=== PATIENT | male | born 1960 | race Asian ===

== ENCOUNTER 2016-06-27 18:13 | Emergency (ER) | payer OTHER ==
[~2016-06-27] VITALS: Ht 170.2 cm; Wt 131.0 kg
[2016-06-27] MEDS ORDERED: TICA90TA PO (18:27)
[2016-06-27] MEDS ORDERED: METF500T4 PO (18:27)
[2016-06-27] MEDS ORDERED: ALLO100T PO (18:27)
[2016-06-27] MEDS ORDERED: ASPI-1061 PO (18:27)
[2016-06-27] MEDS ORDERED: ATOR10TA84 PO (18:27)
[2016-06-27] MEDS ORDERED: LISI-660 PO (18:27)
[2016-06-27 19:30] LABS: BASOPHILS % (AUTO) 0.3 % (0.0-2.0); EOSINOPHILS % (AUTO) 1.8 % (1.0-6.0); HEMATOCRIT 42.8 % (41-53); HEMOGLOBIN 14.1 g/dL (13.5-17.5); LYMPHOCYTES # (AUTO) 3.1 K/uL (1.0-4.8); LYMPHOCYTES % (AUTO) 23.3 % (22.0-44.0); MEAN CORPUSCULAR HEMOGLOBIN 30.6 pg (26.0-34.0); MEAN CORPUSCULAR VOLUME 93 fL (80-100); MONOCYTES # (AUTO) 1.5 K/uL (0.1-1.0); MONOCYTES % (AUTO) 10.8 % (2.0-9.0); NEUTROPHILS # (AUTO) 8.6 K/uL (1.8-7.7); NEUTROPHILS % (AUTO) 63.8 % (40.0-70.0); PLATELET COUNT (AUTO) 305 K/uL (150-450); RED BLOOD CELL COUNT(AUTO) 4.62 MIL/uL (4.50-5.90); RED CELL DISTRIBUTION WIDTH 12.8 % (11.5-14.5); WHITE BLOOD COUNT (AUTO) 13.5 K/uL (4.5-11.0)
[2016-06-27 19:39] LABS: PROTHROMBIN TIME 10.5 SEC (9.4-11.6)
[2016-06-27] MEDS ORDERED: GELATIN SPONGE,ABSORBABLE 12-7 MM TP ONE (20:00)
[2016-06-27 20:41] VITALS: BP 140/85
[2016-06-27 20:50] LABS: GLUCOSE,POINT OF CARE 123 MG/DL (70-110)
== END 2016-06-27 20:44 | disposition home or self-care (01) ==
LOC: EMS 18:18
DX: S80.212A Abrasion, left knee, initial encounter (principal); S80.211A Abrasion, right knee, initial encounter; S81.801A Unspecified open wound, right lower leg, initial encounter; D68.9 Coagulation defect, unspecified; E11.9 Type 2 diabetes mellitus without complications; I10 Essential (primary) hypertension; E78.00 Pure hypercholesterolemia, unspecified; Z79.82 Long term (current) use of aspirin; W18.09XA Striking against other object with subsequent fall, initial encounter; Y93.89 Activity, other specified; Y92.89 Other specified places as the place of occurrence of the external cause; Y99.8 Other external cause status
CPT/HCPCS: 82962; 99284

== ENCOUNTER 2022-06-23 12:20 | Emergency (ER) | payer OTHER ==
[~2022-06-23] VITALS: Ht 170.2 cm; Wt 86.4 kg
[~2022-06-23 12:20] MED LIST: ALLO-97 PO; AMLO-257 PO; ASPI81TA87 PO; ATOR40TA28 PO; CHOL200016 PO; GABA-1181 PO; GLIM2 PO; LOSA-381 PO; LOSA-382 PO; METF-444 PO; METO50 PO; NITR0.4T52 SL; TICA90TA PO
[2022-06-23 12:41] LABS: GLUCOMETER DEV NAME(LOC) ERT.5; GLUCOSE,POINT OF CARE 165 MG/DL (70-110)
[2022-06-23] MEDS ORDERED: KETOROLAC TROMETHAMINE 30 MG/ML VIAL IM ONE (16:15)
[2022-06-23 16:27] VITALS: BP 151/80
== END 2022-06-23 16:28 | disposition home or self-care (01) ==
LOC: EMS 12:25
DX: S20.20XA Contusion of thorax, unspecified, initial encounter (principal); S80.02XA Contusion of left knee, initial encounter; S80.01XA Contusion of right knee, initial encounter; E11.9 Type 2 diabetes mellitus without complications; E78.00 Pure hypercholesterolemia, unspecified; I10 Essential (primary) hypertension; Z98.890 Other specified postprocedural states; W19.XXXA Unspecified fall, initial encounter; Y93.01 Activity, walking, marching and hiking; Y92.89 Other specified places as the place of occurrence of the external cause; Y99.8 Other external cause status
CPT/HCPCS: 99284; 82962; 71101; 73562 ×2; 96372; J1885

== ENCOUNTER 2022-06-26 11:20 | Emergency (ER) | payer OTHER ==
[~2022-06-26] VITALS: Ht 175.3 cm; Wt 100.9 kg
[2022-06-26 11:53] LABS: GLUCOMETER DEV NAME(LOC) ERT.5; GLUCOSE,POINT OF CARE 243 MG/DL (70-110)
[2022-06-26 12:12] LABS: BASOPHILS % (AUTO) 0.3 % (0.0-2.0); EOSINOPHILS % (AUTO) 1.9 % (1.0-6.0); HEMATOCRIT 44.1 % (41-53); HEMOGLOBIN 14.6 g/dL (13.5-17.5); LYMPHOCYTES # (AUTO) 2.5 K/uL (1.0-4.8); LYMPHOCYTES % (AUTO) 29.4 % (22.0-44.0); MEAN CORPUSCULAR HEMOGLOBIN 30.8 pg (26.0-34.0); MEAN CORPUSCULAR HGB CONC 33.2 G/dL (31.0-37.0); MEAN CORPUSCULAR VOLUME 93 fL (80-100); MONOCYTES # (AUTO) 0.7 K/uL (0.1-1.0); MONOCYTES % (AUTO) 7.9 % (2.0-9.0); NEUTROPHILS # (AUTO) 5.2 K/uL (1.8-7.7); NEUTROPHILS % (AUTO) 60.5 % (40.0-70.0); PLATELET COUNT (AUTO) 287 K/uL (150-450); RED BLOOD CELL COUNT(AUTO) 4.74 MIL/uL (4.50-5.90)
[2022-06-26 12:24] LABS: B-TYPE NATRIURETIC PEPTIDE 45 pg/mL (0-100)
[2022-06-26 12:28] LABS: ANION GAP 6 mmol/L (8-16); CALCIUM, TOTAL 8.8 mg/dL (8.8-10.5); CARBON DIOXIDE 29 mmol/L (22-29); CHLORIDE 104 mmol/L (98-107); CREATININE 0.69 mg/dL (0.60-1.30); GLUCOSE,RANDOM 227 mg/dL (70-110); POTASSIUM 4.1 mmol/L (3.5-5.1); SODIUM SERUM 139 mmol/L (136-145); UREA NITROGEN, BLOOD 9 mg/dL (7-18)
[2022-06-26 12:30] LABS: GLOMERULAR FILTR. RATE CALC > 60 mL/min (>60)
[2022-06-26 12:52] LABS: ALANINE AMINOTRANSFERASE 16 U/L (12-78); ALBUMIN 3.7 g/dL (3.4-5.0); ALKALINE PHOSPHATASE 132 U/L (46-116); ASPARTATE AMINOTRANSFERASE 10 U/L (15-37); BILIRUBIN,TOTAL 0.2 mg/dL (0.1-1.0); CREATINE KINASE, TOTAL ONLY 101 U/L (39-308); TOTAL PROTEIN, SERUM 7.4 g/dL (6.4-8.2)
[2022-06-26 13:12] LABS: APPEARANCE,URINE CLEAR (CLEAR); BILIRUBIN,URINE NEGATIVE (NEGATIVE); GLUCOSE, URINE (UA) >=1000 mg/dL (NEGATIVE); KETONES,URINE TRACE mg/dL (NEGATIVE); LEUKOCYTE ESTERASE ,URINE NEGATIVE (NEGATIVE); NITRATE,URINE NEGATIVE (NEGATIVE); OCCULT BLOOD,URINE NEGATIVE (NEGATIVE); PH,URINE 5.5 (5.0-8.0); PROTEIN,URINE TRACE mg/dL (NEGATIVE); SPECIFIC GRAVITIY, URINE 1.029 (1.003-1.030)
[2022-06-26 13:28] LABS: BACTERIA,URINE None Seen /HPF (None Seen); RBC,URINE None Seen /HPF (0-2); SQUAMOUS EPITHELIAL CELL,UR Few /LPF (None Seen); WBC,URINE 0-2 /HPF (0-5)
[2022-06-26 13:31] VITALS: BP 158/84
== END 2022-06-26 13:49 | disposition home or self-care (01) ==
LOC: EMS 11:26
DX: S20.212A Contusion of left front wall of thorax, initial encounter (principal); E11.65 Type 2 diabetes mellitus with hyperglycemia; I10 Essential (primary) hypertension; E78.00 Pure hypercholesterolemia, unspecified; Z79.82 Long term (current) use of aspirin; Z79.899 Other long term (current) drug therapy; W01.198A Fall on same level from slipping, tripping and stumbling with subsequent striking against other object, initial encounter; Y93.89 Activity, other specified; Y92.89 Other specified places as the place of occurrence of the external cause; Y99.8 Other external cause status
CPT/HCPCS: 71045; 80053; 81001; 82550; 82962; 83880; 84484; 85025; 93005; 99285; 36415-L1; 36415-TC

== ENCOUNTER 2023-06-18 11:30 | Emergency (ER) | payer OTHER ==
[~2023-06-18] VITALS: Ht 177.8 cm; Wt 90.9 kg
[2023-06-18] MEDS ORDERED: UNKNOWN MEDICATIONS MISC (12:06)
[2023-06-18 12:10] VITALS: TEMP 98.2
[2023-06-18] MEDS ORDERED: CHOL25TA4 PO (13:49)
[2023-06-18] MEDS ORDERED: HYDROCODONE/ACETAMINOPHEN 5-325 MG TABLET PO ONE (14:00)
[2023-06-18 15:20] VITALS: BP 134/74; PULSE 71; RESP 17
[2023-06-18] MEDS ORDERED: IBUP-1492 PO (15:32)
== END 2023-06-18 15:52 | disposition home or self-care (01) ==
LOC: EMS 11:30
DX: M79.641 Pain in right hand (principal); E11.9 Type 2 diabetes mellitus without complications; E78.00 Pure hypercholesterolemia, unspecified; I10 Essential (primary) hypertension; Z98.890 Other specified postprocedural states
CPT/HCPCS: 82962; 99283

== ENCOUNTER 2024-04-11 02:30 | Emergency (ER) | payer OTHER ==
[~2024-04-11] VITALS: Ht 170.2 cm; Wt 100.0 kg
[~2024-04-11 02:30] MED LIST changes: -ALLO-97 PO; -CHOL200016 PO; +CHOL25TA4 PO; -GLIM2 PO; +IBUP-1492 PO; -LOSA-381 PO; -LOSA-382 PO; -METO50 PO; -NITR0.4T52 SL; -TICA90TA PO; +UNKNOWN MEDICATIONS MISC
[2024-04-11 02:32] VITALS: TEMP 97.8
[2024-04-11 05:05] VITALS: BP 142/77; PULSE 71; RESP 16; O2SAT 99
== END 2024-04-11 05:53 | disposition home or self-care (01) ==
LOC: EMS 02:30
DX: S06.0X0A Concussion without loss of consciousness, initial encounter (principal); M54.2 Cervicalgia; E11.9 Type 2 diabetes mellitus without complications; I10 Essential (primary) hypertension; E78.00 Pure hypercholesterolemia, unspecified; Z79.82 Long term (current) use of aspirin; Z79.899 Other long term (current) drug therapy; W01.0XXA Fall on same level from slipping, tripping and stumbling without subsequent striking against object, initial encounter; Y93.89 Activity, other specified; Y92.89 Other specified places as the place of occurrence of the external cause; Y99.8 Other external cause status
CPT/HCPCS: 70450; 72125; 99284